=== PATIENT | male | born 1960 ===

== ENCOUNTER 2021-11-18 22:41 | Emergency (ER) | payer SELFPAY ==
[2021-11-19 07:51] LABS: Hematocrit 35.9 % (35.5-45.6); Hemoglobin 12.5 gm/dl (11.8-15.2); Mean Corpuscular HGB Conc 35 % (32-34); Mean Corpuscular Volume 97 fl (84-94); Platelet Count 165 K/mm3 (140-440); Red Blood Count 3.71 M/mm3 (3.65-5.03); Red Cell Distribution Width 13.9 % (13.2-15.2)
[2021-11-19 08:06] LABS: INR 1.29 (0.87-1.13)
[2021-11-19 08:12] LABS: Alanine Aminotransferase 27 units/L (7-56); Albumin 2.3 g/dL (3.9-5); BUN/Creatinine Ratio 20; Blood Urea Nitrogen 22 mg/dL (9-20); Calcium 9.1 mg/dL (8.4-10.2); Hemolysis Index 8
[2021-11-19] MEDS ORDERED: ONDANSETRON 4 MG/2 ML INJ IV ONE (08:17)
[2021-11-19] MEDS ORDERED: fentaNYL 100 MCG/2 ML INJ IV ONE ×2 (08:17→14:18)
--- NOTE | 2021-11-19 08:21 | Emergency Department Report ---
HPI - General Chief Complaint: Abdominal Pain Time Seen by Provider: 11/19/21 07:49 - HPI HPI: Room 37 The patient is a 61-year-old male present with chief complaint of abdominal pain. Patient states for the past 5 days he has had constant pain in his left upper quadrant feels as though someone is punching him. Patient denies nausea vomiting or diarrhea. Patient denies history of fever. Patient states she has to find a comfortable position in order to sleep at night. Patient states there is no change in his pain with food. Patient currently gives his pain a score of 9.5/10. Of note the patient stated he had a history of liver cancer status post chemotherapy approximately 8 years ago ED Past Medical Hx - Past Medical History Hx Hypertension: Yes Hx of Cancer: Yes (Liver CA s/p some chemotherapy) Hx Asthma: Yes Additional medical history: "Heart problems" - Surgical History Past Surgical History?: No - Family History Family history: no significant - Social History Smoking Status: Never Smoker Substance Use Type: None (Denies illicit drug use), Alcohol (No alcohol x9 months) ED Review of Systems ROS: Stated complaint: ABDOMINAL PAIN Other details as noted in HPI Constitutional: denies: fever Eyes: denies: eye pain ENT: denies: throat pain Respiratory: no symptoms reported Cardiovascular: denies: chest pain Endocrine: no symptoms reported Gastrointestinal: abdominal pain. denies: nausea, vomiting, diarrhea Genitourinary: denies: dysuria Musculoskeletal: denies: back pain Neurological: denies: headache Physical Exam - Physical Exam Vital Signs: Vital Signs 11/18/21 22:51 Temperature 98.2 F Pulse Rate 86 Respiratory 16 Rate Blood Pressure 126/74 [Right] O2 Sat by Pulse 97 Oximetry Physical Exam: GENERAL: The patient is well-developed well-nourished male lying on stretcher not appearing to be in acute distress. [] HEENT: Normocephalic. Atraumatic. Extraocular motions are intact. Patient has moist mucous membranes. NECK: Supple. Trachea midline CHEST/LUNGS: Clear to auscultation. There is no respiratory distress noted. HEART/CARDIOVASCULAR: Regular. There is no tachycardia. There is no gallop rub or murmur. ABDOMEN: Abdomen is soft, with tenderness to palpation in the epigastric and left upper quadrant. Patient has normal bowel sounds. There is ascites present SKIN: There is no rash. There is no edema. There is no diaphoresis. NEURO: The patient is awake, alert, and oriented. The patient is cooperative. The patient has no focal neurologic deficits. The patient has normal speech. GCS 15 MUSCULOSKELETAL: TThere is no evidence of acute injury. ED Course Vital Signs 11/18/21 22:51 Temperature 98.2 F Pulse Rate 86 Respiratory 16 Rate Blood Pressure 126/74 [Right] O2 Sat by Pulse 97 Oximetry ED Medical Decision Making - Lab Data Result diagrams: 11/19/21 07:34 11/19/21 07:34 Laboratory Tests 11/19/21 11/19/21 11/19/21 07:34 07:34 07:34 WBC 7.6 RBC 3.71 Hgb 12.5 Hct 35.9 MCV 97 H MCH 34 H MCHC 35 H RDW 13.9 Plt Count 165 PT 17.6 H INR 1.29 H Sodium Potassium Chloride Carbon Dioxide Anion Gap BUN Creatinine Estimated GFR BUN/Creatinine Ratio Glucose Calcium Total Bilirubin AST ALT Alkaline Phosphatase Total Protein Albumin Albumin/Globulin Ratio Amylase 88 Lipase 11/19/21 07:34 WBC RBC Hgb Hct MCV MCH MCHC RDW Plt Count PT INR Sodium 132 L Potassium 4.4 Chloride 100.2 Carbon Dioxide 25 Anion Gap 11 BUN 22 H Creatinine 1.1 Estimated GFR > 60 BUN/Creatinine Ratio 20 Glucose 126 H Calcium 9.1 Total Bilirubin 2.70 H AST 43 H ALT 27 Alkaline Phosphatase 94 Total Protein 7.1 Albumin 2.3 L Albumin/Globulin Ratio 0.5 Amylase Lipase 108 H - Radiology Data Radiology results: report reviewed (CT abdomen pelvis), image reviewed (CT abdomen pelvis) [facility] [address] [place] [address] Cat Scan Report Signed Patient: KRISHNA GARCIA MR#: [id number] : 1960 Acct:[id number] Age/Sex: 61 / M ADM Date: 11/18/21 Loc: ED Attending Dr: Ordering Physician: DAVID FLETCHER MD Date of Service: 11/19/21 Procedure(s): CT abdomen pelvis w con Accession Number(s): [id number] cc: DAVID FLETCHER MD CT ABDOMEN AND PELVIS WITH CONTRAST INDICATION / CLINICAL INFORMATION: Left upper quadrant abdominal pain. h/o liver CA. TECHNIQUE: Axial CT images were obtained through the abdomen and pelvis after 100 cc of Omnipaque 300 IV contrast. Sagittal and coronal reformatted images. All CT scans at this location are performed using CT dose reduction for ALARA by means of automated exposure control. COMPARISON: None available. FINDINGS: LOWER CHEST: No significant abnormality. LIVER: There are moderate cirrhotic changes in the liver. There is an exophytic, predominantly cystic lesion which projects from the anterior left hepatic lobe measuring up to 11.7 x 9.7 x 11.2 cm. There is a single smooth internal septation. No evidence for internal gas or soft tissue component. This could represent a necrotic mass or a hepatic abscess. GALLBLADDER: A few small calcified gallstones are noted. No evidence for acute cholecystitis. BILE DUCTS: No significant abnormality. PANCREAS: No significant abnormality. SPLEEN: There is moderate splenomegaly measuring 10.3 cm. ADRENALS: No significant abnormality. RIGHT KIDNEY and URETER: There is severe right hydronephrosis. There is a large stone in the mid right ureter near the level of L4 measuring 1.5 cm. There is also a 5 mm calyceal stone at the inferior pole of the right kidney. Mild cortical thinning in the right kidney is suspected suggesting a chronic process. LEFT KIDNEY and URETER: There are 2 small calyceal stones at the lower pole measuring 3 mm each, otherwise unremarkable. STOMACH and SMALL BOWEL: No significant abnormality. COLON: No significant abnormality. APPENDIX: No significant abnormality. PERITONEUM: No free fluid. No free air. No fluid collection. LYMPH NODES: No significant adenopathy. AORTA and ARTERIES: No significant abnormality. IVC and VEINS: There are multiple large splenic vein varicosities multiple moderate varicosities are noted in the pelvis adjacent to the rectum. No distal esophageal varices. URINARY BLADDER: The bladder is mostly empty but unremarkable. REPRODUCTIVE ORGANS: No significant abnormality. ADDITIONAL FINDINGS: Small umbilical hernia containing fat. SKELETAL SYSTEM: No acute abnormality or bone lesion. Mild thoracolumbar spondylosis. IMPRESSION: Cirrhosis, splenomegaly and multiple large varicosities. No ascites. There is an exophytic masslike lesion measuring up to 11.7 cm which projects from the anterior left hepatic lobe. There appears to be near complete central necrosis. This could represent a neoplasm. A hepatic abscess could be considered in the appropriate clinical presentation. Bilateral nephrolithiasis as described. There is a large 1.5 cm stone in the mid right ureter with severe right hydronephrosis. This may be chronic as there is mild cortical thinning in the right kidney. Small umbilical hernia containing fat. Signer Name: Polo Stoddard Jr, MD Signed: 11/19/2021 10:27 AM Workstation Name: [id number] Transcribed By: TTR Dictated By: POLO STODDARD JR, MD Electronically Authenticated By: POLO STODDARD JR, MD Signed Date/Time: 11/19/21 1027 DD/ 1019 TD/TT: - Differential Diagnosis Pancreatitis, peptic ulcer disease, splenomegaly, Critical care attestation.: If time is entered above; I have spent that time in minutes in the direct care of this critically ill patient, excluding procedure time. ED Disposition Clinical Impression: Acute abdominal pain, Pancreatitis, acute, Liver mass Disposition: ADMITTED INPATIENT Is pt being admited?: Yes Does the pt Need Aspirin: No Condition: Stable Referrals: PRIMARY CARE, [Primary Care Provider] - 3-5 Days Time of Disposition: 11:38 (Care transferred to hospitalist (Dr. Scherer))
--- NOTE | 2021-11-19 10:32 | Cat Scan Report ---
CT ABDOMEN AND PELVIS WITH CONTRAST INDICATION / CLINICAL INFORMATION: Left upper quadrant abdominal pain. h/o liver CA. TECHNIQUE: Axial CT images were obtained through the abdomen and pelvis after 100 cc of Omnipaque 300 IV contras t. Sagittal and coronal reformatted images. All CT scans at this location are performed using CT dose reduction for ALARA by means of automated exposure control. COMPARISON: None available. FINDINGS: LOWER CHEST: No significant abnormality. LIVER: There are moderate cirrhotic changes in the liver. There is an exophytic, predominantly cystic lesion which projects from the anterior left hepatic lobe measuring up to 11.7 x 9.7 x 11.2 cm. Ther e is a single smooth internal septation. No evidence for internal gas or soft tissue component. This could represent a necrotic mass or a hepatic abscess. GALLBLADDER: A few small calcified gallstones are noted. No evidence for acute cholecystitis. BILE DUCTS: No significant abnormality. PANCREAS: No significant abnormality. SPLEEN: There is moderate splenomegaly measuring 10.3 cm. ADRENALS: No significant abnormality. RIGHT KIDNEY and URETER: There is severe right hydronephrosis. There is a large stone in the mid righ t ureter near the level of L4 measuring 1.5 cm. There is also a 5 mm calyceal stone at the inferior p ole of the right kidney. Mild cortical thinning in the right kidney is suspected suggesting a chronic process. LEFT KIDNEY and URETER: There are 2 small calyceal stones at the lower pole measuring 3 mm each, othe rwise unremarkable. STOMACH and SMALL BOWEL: No significant abnormality. COLON: No significant abnormality. APPENDIX: No significant abnormality. PERITONEUM: No free fluid. No free air. No fluid collection. LYMPH NODES: No significant adenopathy. AORTA and ARTERIES: No significant abnormality. IVC and VEINS: There are multiple large splenic vein varicosities multiple moderate varicosities are noted in the pelvis adjacent to the rectum. No distal esophageal varices. URINARY BLADDER: The bladder is mostly empty but unremarkable. REPRODUCTIVE ORGANS: No significant abnormality. ADDITIONAL FINDINGS: Small umbilical hernia containing fat. SKELETAL SYSTEM: No acute abnormality or bone lesion. Mild thoracolumbar spondylosis. IMPRESSION: Cirrhosis, splenomegaly and multiple large varicosities. No ascites. There is an exophytic masslike lesion measuring up to 11.7 cm which projects from the anterior left h epatic lobe. There appears to be near complete central necrosis. This could represent a neoplasm. A h epatic abscess could be considered in the appropriate clinical presentation. Bilateral nephrolithiasis as described. There is a large 1.5 cm stone in the mid right ureter with se claudy right hydronephrosis. This may be chronic as there is mild cortical thinning in the right kidney . Small umbilical hernia containing fat. Signer Name: Polo Stoddard Jr, MD Signed: 11/19/2021 10:27 AM Workstation Name: [id number]
--- NOTE | 2021-11-19 16:46 | Event Note ---
Date: 11/19/21 Consult note Patient has large hepatic mass and needs follow-up with [facility] and tertiary center. No active recent for admission to the hospital. No oncologists in the hospital. Patient needs follow-up with PCP and tertiary care center for liver neoplasm. Patient also needs support system and help of his children who live in [place]. CT abdomen Cirrhosis splenomegaly and multiple large varicosities no ascites. There is an exophytic masslike lesion measuring up to 11.7 cm which projects from the anterior left hepatic lobe. There appears to be near complete central necrosis. This could represent a neoplasm. I hepatic abscess should be considered in the appropriate clinical presentation. Bilateral nephrolithiasis as described. There is a large 1.5 cm in the mid right ureter with severe right hydronephrosis. This may be chronic as there is mild cortical thinning in the right kidney. Small umbilical hernia containing fat. Discharge diagnosis Hepatic neoplasm No pancreatitis Pain management
[2021-11-19] MEDS ORDERED: HYDROmorphone 1 MG/1 ML INJ IV ONE (17:41)
[2021-11-19 18:29] VITALS: BP 126/78
== END 2021-11-19 18:31 | disposition home or self-care (01) ==
LOC: ED 22:41
DX: R10.12 Left upper quadrant pain (principal); K85.90 Acute pancreatitis without necrosis or infection, unspecified; R16.0 Hepatomegaly, not elsewhere classified; I10 Essential (primary) hypertension; Z85.9 Personal history of malignant neoplasm, unspecified; J45.909 Unspecified asthma, uncomplicated
CPT/HCPCS: 36415; 74177; 80053; 82150; 83690; 85027; 85610; 96374; 96375; 96376; 99284; J1170; J2405; J3010; Q9967